=== PATIENT | female | born 1985 | race Caucasian/White ===

== ENCOUNTER 2022-11-08 13:06 | Outpatient (CLI) | payer BC | END 2022-11-08 13:07 | disposition home or self-care (01) | LOC: CSHULT 13:06 | PROVIDERS: ATTEND Student in an Organized Health Care Education/Training Program | DX: L68.0 Hirsutism (principal); R63.5 Abnormal weight gain; R19.8 Other specified symptoms and signs involving the digestive system and abdomen | CPT/HCPCS: 76856 ==

== ENCOUNTER 2022-12-21 15:09 | Emergency (ER) | payer BC ==
[~2022-12-21 15:09] MED LIST: Iopamidol 370 76% 100 ML VIAL ONE
[2022-12-21 15:58] LABS: #Basophils 0.1 10x3/uL (0.0-0.2); #Eosinphils 0.2 10x3/uL (0.0-0.5); #Neutrophils 4.4 10x3/uL (1.5-8.4); %Basophils 0.7 % (0.0-2.0); %Eosinophils 2.1 % (0.0-6.0); %Lymphocytes 26.3 % (18.0-47.0); %Neutrophils 57.6 % (40.0-75.0); Hemoglobin 14.1 g/dL (12.0-15.5); Mean Corpuscular HGB CONC 34.1 g/dL (32.0-36.0); Mean Platelet Volume 9.2 fl (7.4-10.4); Platelet Count 381 10x3/uL (150-450); RBC Distribution Width 13.3 % (11.5-14.5); Red Blood Cell (RBC) Count 4.86 10x6/uL (3.90-5.03); White Blood Cell (WBC) Count 7.7 10x3/uL (3.5-10.5)
[2022-12-21 16:00] LABS: ALT (SGPT) 71 U/L (8-55); AST (SGOT) 53 U/L (5-34); Albumin 4.2 g/dL (3.5-5.0); Alkaline Phosphatase 107 U/L (40-110); Anion Gap 14 mmol/L (10-20); BUN (Urea Nitrogen) 8 mg/dL (7.0-18.7); Bilirubin, Total 0.4 mg/dL (0.2-1.2); Calc. Creatinine Clearance 0 mL/min (70-130); Calcium 9.4 mg/dL (7.8-10.44); Carbon Dioxide 23 mmol/L (22-29); Chloride 105 mmol/L (98-107); Estimated GFR 103; Globulin 2.8 g/dL (2.4-3.5); Glucose 110 mg/dL (70-105); Potassium 4.3 mmol/L (3.5-5.1); Sodium 138 mmol/L (136-145)
== END 2022-12-21 19:17 | disposition home or self-care (01) ==
LOC: CSHERS 15:09
DX: U07.1 COVID-19 (principal); E66.9 Obesity, unspecified
CPT/HCPCS: 36415; 71045; 71275; 80053; 83605; 84484; 85025; 85379; 93005; Q9967